=== PATIENT | male | born 1985 | race Caucasian/White ===

== ENCOUNTER → 2022-11-27 09:54 | Outpatient (BNVA) | payer OTHER, SELFPAY | PROVIDERS: PCP Nurse Practitioner Family; Referring Provider Nurse Practitioner Family; Visit Provider Surgery ==

== ENCOUNTER 2022-12-18 06:40 | Outpatient (REF) | payer OTHER, SELFPAY ==
[2022-12-18 11:33] LABS: MANUAL DIFF FLAG NO
[2022-12-18 11:52] LABS: Basophils Percent Auto 0.4 % (0-2); Eosinophils Absolute Auto 0.2 X10*3/uL (0.0-0.4); Eosinophils Percent Auto 2.1 % (0-4); Imm Gran Abs Auto 0.05 X10*3/uL (0.00-0.03); Imm Gran Pct Auto 0.5 % (0.0-0.4); Lymphocytes Absolute Auto 2.8 X10*3/uL (1.2-4.9); Lymphocytes Percent Auto 27.5 % (20-40); Mean Corpuscular HGB Conc 33.3 g/dl (31.0-36.0); Mean Corpuscular Hemoglobin 29.6 pg (27.0-33.0); Mean Corpuscular Volume 88.8 fL (80.0-98.0); Mean Platelet Volume 10.9 fL (9.4-12.4); Monocytes Absolute Auto 0.8 X10*3/uL (0.1-1.2); Monocytes Percent Auto 7.4 % (2-11); Neutrophils Absolute Auto 6.4 x10*3/uL (2.0-8.3); Neutrophils Percent Auto 62.1 % (45-73); Platelet Count 266 X10*3/uL (160-400); Red Blood Count 5.07 X10*6/uL (4.60-5.80); Red Cell Distribution Width 11.8 % (11.0-16.0); White Blood Count 10.3 X10*3/uL (4.8-10.8)
[2022-12-18 12:00] LABS: Appearance Urine Clear; Color Urine Yellow; Glucose Urine UA Negative (Negative); Leukocyte Esterase Urine Negative (Negative); Nitrite Urine Negative (Negative); Urine Blood Negative (Negative); Urine Ketones Negative (Negative); Urine Protein Negative (Neg-Trace)
[2022-12-18 12:54] LABS: Alanine Aminotransferase 26 U/L (0-40); Albumin Level 4.3 g/dL (3.5-5.0); Alkaline Phosphatase 42 U/L (39-117); Anion Gap 10 (12-20); Aspartate Amino Transferase 13 U/L (5-37); Bilirubin Total 1.8 mg/dL (0.0-1.0); Blood Urea Nitrogen 17 mg/dL (9-16); Carbon Dioxide 25 mmol/L (22-29); Chloride 110 mmol/L (96-108); Cholesterol 165 mg/dL; Estimated Glomerular Filt Rate > 60; Glucose Fasting 93 mg/dL (60-99); HDL Cholesterol 44 mg/dL; LDL Cholesterol Calculated 109 mg/dl; Potassium 4.4 mmol/L (3.3-5.1); Sodium 141 mmol/L (135-145); TSH reflex Free T4 1.25 uIU/mL (0.32-4.0); Total Protein 6.6 g/dL (6.5-8.0); Triglycerides 64 mg/dL
== END 2022-12-18 06:41 | disposition home or self-care (01) ==
LOC: HO.HMGCLDS 06:40
PROVIDERS: PCP Nurse Practitioner Family; Visit Provider Nurse Practitioner Family
DX: Z00.00 Encounter for general adult medical examination without abnormal findings (principal); L72.3 Sebaceous cyst
CPT/HCPCS: 11402; 36415; 80053; 80061; 81003; 84443; 85025

== ENCOUNTER 2022-12-18 14:30 | Outpatient (REF) | payer OTHER, SELFPAY | END 2022-12-18 14:31 | disposition home or self-care (01) | LOC: HO.LNP 14:30 | PROVIDERS: Visit Provider Surgery | DX: L72.3 Sebaceous cyst (principal) | CPT/HCPCS: 88304 ==

== ENCOUNTER → 2022-12-29 08:28 | Outpatient (BNVA) | payer OTHER, SELFPAY | PROVIDERS: Visit Provider Surgery ==

== ENCOUNTER 2023-01-04 07:55 | Outpatient (REF) | payer OTHER, SELFPAY ==
--- NOTE | ~2023-01-04 | US_ITS ---
EXAMINATION: US ABDOMEN COMPLETE CLINICAL INFORMATION: Unspecified jaundice. COMPARISON: CT abdomen and pelvis 11/22/2019. TECHNIQUE: Real-time imaging of the abdominal viscera. FINDINGS: PANCREAS: Normal. ABDOMINAL AORTA: The proximal, mid, and distal segments are normal in caliber. INFERIOR VENA CAVA: Visualized portions are normal. LIVER: The liver is normal in size. The liver contour is normal. Liver echotexture is slightly increased. No focal hepatic lesion. There is no intrahepatic biliary duct dilatation seen. GALLBLADDER: Normal. The gallbladder is physiologically distended without evidence of stones, sludge, polyps, wall thickening or pericholecystic fluid. COMMON BILE DUCT: Normal in caliber measuring 0.2 cm in diameter. RIGHT KIDNEY: Normal. No hydronephrosis. No renal calculi or focal parenchymal lesions. The kidney measures 10.1 cm in maximum dimension. LEFT KIDNEY: Normal. No hydronephrosis. No renal calculi or focal parenchymal lesions. The kidney measures 11.1 cm in maximum dimension. SPLEEN: Normal. The spleen measures 10.4 cm in maximum dimension. FREE FLUID: None. US/US abdomen complete IMPRESSION: Slightly echogenic liver probably representing fatty infiltration. Otherwise unremarkable exam.
== END 2023-01-04 07:56 | disposition home or self-care (01) ==
LOC: HO.US 07:55
PROVIDERS: PCP Nurse Practitioner Family; Visit Provider Nurse Practitioner Family
DX: R17 Unspecified jaundice (principal)
CPT/HCPCS: 76700

== ENCOUNTER 2023-01-15 06:57 | Outpatient (REF) | payer OTHER, SELFPAY ==
[2023-01-15 11:42] LABS: Immature Retic Fraction 7.9 % (2.3-13.4); Retic HGB Equivalent 35.7 pg (30.0-35.0); Reticulocyte Percent 1.2 % (0.5-1.8); Reticulocytes Absolute 0.062 X10*6/uL (0.026-0.095)
[2023-01-15 12:07] LABS: Bilirubin Direct 0.3 mg/dL (0.0-0.5); Bilirubin Total 1.4 mg/dL (0.0-1.0); Lactate Dehydrogenase 306 U/L (118-273)
[2023-01-18 21:09] LABS: Transglutaminase Ab IgG <1.0 U/mL; Transglutaminase IgA <1.0 U/mL
[2023-01-21 21:07] LABS: Haptoglobin 132 mg/dL (43-212)
== END 2023-01-15 06:58 | disposition home or self-care (01) ==
LOC: HO.HMGCLDS 06:57
PROVIDERS: PCP Nurse Practitioner Family; Visit Provider Nurse Practitioner Family
DX: R17 Unspecified jaundice (principal)
CPT/HCPCS: 36415; 82247; 82248; 83010; 83615; 85045; 86364

== ENCOUNTER 2023-01-25 14:54 | Outpatient (AMB) | payer OTHER, SELFPAY ==
[2023-01-25 15:07] VITALS: BP 116/70; PULSE 71; O2SAT 97; BMI 26.7
--- NOTE | 2023-01-25 15:07 | MHC.PC.OV ---
Vital Signs 01/25/23 15:07 Height 5 ft 8 in Weight 175 lb 8 oz BMI 26.7 BP 116/70 Blood Pressure Location Lt brachial Position Sitting Pulse 71 Pulse Source Pulse Oximeter Pulse Oximetry (%) 97 Oxygen Delivery Method Room Air Intake Visit Reasons: 3m follow up Allergies SEASONAL ALLERGIES Allergy (Unknown, Uncoded 01/25/23 15:09) unknown Medication List - Last Reconciled 01/25/23 by MARCO Velasquez sertraline 50 mg PO DAILY 30 days Tobacco use date assessed: 01/25/23 Dental Screening Dental Screen Date: 01/25/23 Did you have a dental visit in the last 12 months?: Yes Did you have a dental problem in the last 6 months where you did not have access to dental care?: No Was dental information given to patient?: Patient has dentist HPI 3m follow up HPI Details Pt's last bilirubin was elevated, though it is trending down. Liver function was normal. Will repeat labs in 2 months. Denies fever, chills, abdominal pain, and N/V/D. Pt reports increase anxiety with OCD component. Will increase sertraline from 25mg to 50mg. Denies any SI and HI. [facility] Medical History (Updated 01/06/23 @ 17:48 by MARCO Velasquez) Fatty liver Surgical History H/O removal of cyst (09/05/19) History of excision of mass (12/18/22) History of surgery (01/11/20) Family History Father Substance use disorder Maternal Grandfather Substance use disorder Maternal Grandmother Substance use disorder Paternal Grandfather Substance use disorder Paternal Grandmother Substance use disorder Social History Housing: House Patient Tobacco Use Status: Former Tobacco user e-Cigarette/Vaping Use: Currently Using service: No Current occupational status: employed Current occupation: [employer] Current occupational exposures/hazards: No Cognitive needs: No Hearing needs: No Vision needs: No Questionnaire Thrive Questionnaire Date Thrive assessed: 10/27/22 SOBIA-7 AMB Questionnaire SOBIA-7 Date SOBIA - 7 assessed: 10/27/22 Source: Developed by Drs. Nikita Gauthier, Lisa Miller, Santiago Dominique and colleagues, with an educational esperanza from [employer]. Review of Systems Const Reports as per HPI Physical exam (Primary Care) Vital Signs: Last Vital Signs Pulse 71 01/25/23 15:07 BP 116/70 01/25/23 15:07 Pulse Ox 97 01/25/23 15:07 Oxygen Delivery Method Room Air 01/25/23 15:07 BMI result Body Mass Index 26.7 Tobacco/Smoking Status: Tobacco use Status Tobacco use date assessed 01/25/23 01/25/23 15:11 Patient Tobacco Use Status Former Tobacco user 01/25/23 15:11 e-Cigarette/Vaping Use Currently Using 01/25/23 15:11 Thrive Assessment: Date of Thrive Assessment Date Thrive assessed 10/27/22 01/25/23 15:11 Const General: cooperative Orientation/consciousness: patient oriented x3 Resp Effort & Inspection: normal respiratory effort Auscultation: clear to auscultation bilaterally Cardio Rate: regular rate Rhythm: regular rhythm Heart sounds: S1 normal heart sound present and S2 normal heart sound present Neuro General: patient oriented x3 Psych Appearance: grossly normal Mental Status: mental status grossly normal Speech and movement: Normal speech and movement present Affect: normal affect Attitude: cooperative Thought process: Normal thought process present Thought content: Normal thought content present Insight: Good insight present (Psych) Judgement: Good judgement present (Psych) Assessment and Plan Assessment & Plan (1) Elevated bilirubin: Code(s): R17 - Unspecified jaundice (2) Anxiety: Code(s): F41.9 - Anxiety disorder, unspecified Plan The patient agreed to the use of a bacteriologist medical for this encounter. Scribed for ZOHREH Wilcox by Elzbieta Fontaine bacteriologist medical, on 01/25/2023 at 15:10 EST. Orders: Orders Bilirubin Direct Today R17 - Unspecified jaundice Bilirubin Total Today R17 - Unspecified jaundice Comprehensive Met. Panel Today R17 - Unspecified jaundice Lactate Dehydrogenase Today R17 - Unspecified jaundice Complete Blood Count Auto Diff Today R17 - Unspecified jaundice Reticulocyte Count Today R17 - Unspecified jaundice Medications: Changed From sertraline 25 mg PO DAILY 30 days 30 tabs 3RF To sertraline 50 mg PO DAILY 30 days 30 tabs 3RF From sertraline 50 mg PO DAILY 30 days 30 tabs 3RF To sertraline 50 mg PO DAILY 90 tabs 3RF 90 days Coding Level of Care Code Est Pt Level 3 (72436) Diagnoses Elevated bilirubin R17 Anxiety F41.9
== END 2023-01-25 15:26 | disposition home or self-care (01) ==
PROVIDERS: Visit Provider Nurse Practitioner Family
DX: R17 Unspecified jaundice (principal); F41.9 Anxiety disorder, unspecified
CPT/HCPCS: 99213

== ENCOUNTER 2023-04-21 07:27 | Outpatient (REF) | payer OTHER, SELFPAY ==
[2023-04-21 11:21] LABS: MANUAL DIFF FLAG NO
[2023-04-21 11:33] LABS: Basophils Percent Auto 0.5 % (0-2); Eosinophils Absolute Auto 0.2 X10*3/uL (0.0-0.4); Eosinophils Percent Auto 1.9 % (0-4); Hematocrit 45.6 % (42.0-52.0); Hemoglobin 15.1 g/dl (14.0-18.0); Imm Gran Abs Auto 0.04 X10*3/uL (0.00-0.03); Imm Gran Pct Auto 0.5 % (0.0-0.4); Immature Retic Fraction 5.8 % (2.3-13.4); Lymphocytes Absolute Auto 2.4 X10*3/uL (1.2-4.9); Lymphocytes Percent Auto 27.7 % (20-40); Mean Corpuscular HGB Conc 33.1 g/dl (31.0-36.0); Mean Corpuscular Hemoglobin 29.7 pg (27.0-33.0); Mean Corpuscular Volume 89.8 fL (80.0-98.0); Mean Platelet Volume 10.9 fL (9.4-12.4); Monocytes Absolute Auto 0.6 X10*3/uL (0.1-1.2); Monocytes Percent Auto 6.4 % (2-11); Neutrophils Absolute Auto 5.4 x10*3/uL (2.0-8.3); Platelet Count 249 X10*3/uL (160-400); Red Blood Count 5.08 X10*6/uL (4.60-5.80); Red Cell Distribution Width 11.8 % (11.0-16.0); Retic HGB Equivalent 34.9 pg (30.0-35.0); Reticulocyte Percent 1.2 % (0.5-1.8); Reticulocytes Absolute 0.061 X10*6/uL (0.026-0.095); White Blood Count 8.6 X10*3/uL (4.8-10.8)
[2023-04-21 11:56] LABS: Alanine Aminotransferase 67 U/L (0-40); Albumin Level 4.4 g/dL (3.5-5.0); Alkaline Phosphatase 44 U/L (39-117); Anion Gap 11 (12-20); Aspartate Amino Transferase 36 U/L (5-37); Bilirubin Direct 0.3 mg/dL (0.0-0.5); Bilirubin Total 0.8 mg/dL (0.0-1.0); Blood Urea Nitrogen 22 mg/dL (9-16); Calcium 9.1 mg/dL (8.4-10.2); Carbon Dioxide 26 mmol/L (22-29); Chloride 107 mmol/L (96-108); Estimated Glomerular Filt Rate > 60; Glucose Random 98 mg/dL (60-115); Potassium 4.1 mmol/L (3.3-5.1); Sodium 140 mmol/L (135-145); Total Protein 6.9 g/dL (6.5-8.0)
[2023-04-21 12:39] LABS: Lactate Dehydrogenase 192 U/L (118-273)
== END 2023-04-21 07:28 | disposition home or self-care (01) ==
LOC: HO.CHCLDS 07:27
PROVIDERS: Visit Provider Nurse Practitioner Family
DX: R17 Unspecified jaundice (principal)
CPT/HCPCS: 36415; 80053; 82248; 83615; 85025; 85045

== ENCOUNTER 2023-04-29 07:53 | Outpatient (AMB) | payer OTHER, SELFPAY ==
[2023-04-29 07:58] VITALS: BP 110/68; PULSE 62; O2SAT 97; BMI 26.5
--- NOTE | 2023-04-29 07:58 | MHC.PC.OV ---
Vital Signs 04/29/23 07:58 Height 5 ft 8 in Weight 174 lb 8 oz BMI 26.5 BP 110/68 Blood Pressure Location Lt brachial Position Sitting Pulse 62 Pulse Source Pulse Oximeter Pulse Oximetry (%) 97 Oxygen Delivery Method Room Air Intake Visit Reasons: 3 Month follow up Allergies SEASONAL ALLERGIES Allergy (Unknown, Uncoded 04/29/23 08:00) unknown Medication List - Last Reconciled 04/29/23 by MARCO Velasquez sertraline 50 mg PO DAILY 90 days Tobacco use date assessed: 04/29/23 Dental Screening Dental Screen Date: 04/29/23 Did you have a dental visit in the last 12 months?: Yes Did you have a dental problem in the last 6 months where you did not have access to dental care?: No Was dental information given to patient?: Patient has dentist HPI 3 Month follow up HPI Details Anxiety. Pt is currently taking sertraline 50mg. Pt reports doing well on this med. Denies any SI and HI. Pt has a hx of fatty liver confirmed on US. Pt's liver enzymes have increased, will repeat. Pt would like to quit vaping. Will send nicotine patches. knows to take them off at night, before bed. [facility], [facility] Medical History (Updated 04/29/23 @ 08:11 by MARCO Velasquez) Fatty liver Surgical History History of excision of mass (12/18/22) History of surgery (01/11/20) H/O removal of cyst (09/05/19) Family History Father Substance use disorder Maternal Grandfather Substance use disorder Maternal Grandmother Substance use disorder Paternal Grandfather Substance use disorder Paternal Grandmother Substance use disorder Social History Housing: House Patient Tobacco Use Status: Former Tobacco user e-Cigarette/Vaping Use: Currently Using service: No Current occupational status: employed Current occupation: [employer] Current occupational exposures/hazards: No Cognitive needs: No Hearing needs: No Vision needs: No Questionnaire Thrive Questionnaire Date Thrive assessed: 10/27/22 SOBIA-7 AMB Questionnaire SOBIA-7 Date SOBIA - 7 assessed: 10/27/22 Source: Developed by Drs. Nikita Gauthier, Lisa Miller, Santiago Dominique and colleagues, with an educational esperanza from [employer]. Review of Systems Const Reports as per HPI Physical exam (Primary Care) Vital Signs: Last Vital Signs Pulse 62 04/29/23 07:58 BP 110/68 04/29/23 07:58 Pulse Ox 97 04/29/23 07:58 Oxygen Delivery Method Room Air 04/29/23 07:58 BMI result Body Mass Index 26.5 Tobacco/Smoking Status: Tobacco use Status Tobacco use date assessed 04/29/23 04/29/23 08:02 Patient Tobacco Use Status Former Tobacco user 04/29/23 08:02 e-Cigarette/Vaping Use Currently Using 04/29/23 08:02 Thrive Assessment: Date of Thrive Assessment Date Thrive assessed 10/27/22 04/29/23 08:02 Const General: cooperative Orientation/consciousness: patient oriented x3 Resp Effort & Inspection: normal respiratory effort Auscultation: clear to auscultation bilaterally Cardio Rate: regular rate Rhythm: regular rhythm Heart sounds: S1 normal heart sound present and S2 normal heart sound present GI Other: no abdominal pain with palpation Neuro General: patient oriented x3 Psych Appearance: grossly normal Mental Status: mental status grossly normal Speech and movement: Normal speech and movement present Affect: normal affect Attitude: cooperative Thought process: Normal thought process present Thought content: Normal thought content present Insight: Good insight present (Psych) Judgement: Good judgement present (Psych) Assessment and Plan Assessment & Plan (1) Fatty liver: Code(s): K76.0 - Fatty (change of) liver, not elsewhere classified Plan: Labs ordered (2) Elevated liver enzymes: Code(s): R74.8 - Abnormal levels of other serum enzymes Plan: Labs ordered (3) Anxiety: Code(s): F41.9 - Anxiety disorder, unspecified Plan The patient agreed to the use of a medical radiation dosimetrist for this encounter. Scribed for MARCO Wilcox by Elzbieta Fontaine medical radiation dosimetrist, on 04/29/2023 at 08:05 EST Orders: Orders Comprehensive Met. Panel Today K76.0 - Fatty (change of) liver, not elsewhere classified, R74.8 - Abnormal levels of other serum enzymes Medications: New nicotine 1 patch transdermal DAILY 28 ea 0RF Coding Level of Care Code Est Pt Level 3 (95521) Diagnoses Fatty liver K76.0 Elevated liver enzymes R74.8 Anxiety F41.9
== END 2023-04-29 09:43 | disposition home or self-care (01) ==
PROVIDERS: PCP Nurse Practitioner Family; Visit Provider Nurse Practitioner Family
DX: K76.0 Fatty (change of) liver, not elsewhere classified (principal); R74.8 Abnormal levels of other serum enzymes; F41.9 Anxiety disorder, unspecified
CPT/HCPCS: 99213

== ENCOUNTER 2023-10-05 07:57 | Outpatient (AMB) | payer OTHER, SELFPAY ==
--- NOTE | 2023-10-05 08:04 | MHC.PC.OV ---
Vital Signs 10/05/23 08:06 Height 5 ft 8 in Weight 189 lb BMI 28.7 BP 122/76 Blood Pressure Location Lt brachial Position Sitting Pulse 66 Pulse Source Pulse Oximeter Pulse Oximetry (%) 98 Oxygen Delivery Method Room Air Intake Visit Reasons: Annual PE Intake Note: pt is here for annual exam Construction Engineering Manager Required: No Accompanied by: Self / Same As Patient Allergies SEASONAL ALLERGIES Allergy (Unknown, Uncoded 10/05/23 08:32) unknown Medication List - Last Reconciled 10/05/23 by MARCO Velasquez sertraline 100 mg PO DAILY 90 days Tobacco use date assessed: 10/05/23 Dental Screening Dental Screen Date: 10/05/23 Did you have a dental visit in the last 12 months?: Yes Did you have a dental problem in the last 6 months where you did not have access to dental care?: No Was dental information given to patient?: Patient has dentist HPI Annual PE HPI Details Pt is here for a PE. Will order labs. Pt is currently taking sertraline 50mg. He reports that this helps minimally and he would like this increased. Will increase to 100mg. Denies any SI and HI. [facility] Medical History Fatty liver Surgical History History of excision of mass (12/18/22) History of surgery (01/11/20) H/O removal of cyst (09/05/19) Family History Father Substance use disorder Maternal Grandfather Substance use disorder Maternal Grandmother Substance use disorder Paternal Grandfather Substance use disorder Paternal Grandmother Substance use disorder Social History Housing: House Patient Tobacco Use Status: Former Tobacco user e-Cigarette/Vaping Use: Currently Using service: No Current occupational status: employed Current occupation: [employer] Current occupational exposures/hazards: No Cognitive needs: No Hearing needs: No Vision needs: No Questionnaire PHQ-9 Over the last 2 weeks, how often have you been bothered by any of the following problems? 1. Little interest or pleasure in doing things: not at all 2. Feeling down, depressed, or hopeless: not at all 3. Trouble falling or staying asleep, or sleeping too much: not at all 4. Feeling tired or having little energy: not at all 5. Poor appetite or overeating: several days 6. Feeling bad about yourself - or that you are a failure or have let yourself or your family down: not at all 7. Trouble concentrating on things, such as reading the newspaper or watching television: nearly every day 8. Moving or speaking so slowly that other people could have noticed. Or the opposite - being so fidgety or restless that you have been moving around a lot more than usual: not at all 9. Thoughts that you would be better off or of hurting yourself in some way: not at all Total score: 4 Depression Screening Interpretation: Positive Depression Screening Done: Yes 73087 - PHQ-9 Billing: Yes Source: Developed by Drs. Nikita Gauthier, Lisa Miller, Santiago Dominique and colleagues, with an educational esperanza from [employer]. Thrive Questionnaire Date Thrive assessed: 10/05/23 I am a: Patient What is your living situation today?: I have a steady place to live Within the past 12 months, did the food you bought not last and you didn't have the money to get more?: Never true Within the past 12 months, did you worry whether your food would run out before you got money to buy more?: Never true Do you have trouble paying for medicines?: No Do you have trouble getting transportation to medical appointments?: No Do you have trouble paying your heating and electricity bill?: No Do you have trouble taking care of your child, family member or friend?: No Do you have trouble with day-to-day activities such as bathing, preparing meals, shopping, managing finances, etc.?: No Are you currently unemployed and looking for a job?: No Are you interested in more education?: No Please select the resources that you would like help with: None Currently or been in a relationship where the following occur: no concerns reported THRIVE Score: 0 AUDIT C Alcohol Use Questionnaire (AUDIT-C) 1. How often do you have a drink containing alcohol?: Never Total Score: 0 Score Reviewed/Action Taken: Yes SOBIA-7 AMB Questionnaire SOBIA-7 Date SOBIA - 7 assessed: 10/05/23 Feeling nervous, anxious, or on edge: 3 = Nearly every day Not being able to stop or control worryin = More than half the days Worrying too much about different things: 2 = More than half the days Trouble relaxin = More than half the days Being so restless that it is hard to sit still: 3 = Nearly every day Becoming easily annoyed or irritable: 3 = Nearly every day Feeling afraid as if something awful might happen: 0 = Not at all Total SOBIA-7 score (0-4 normal; 5-9 mild; 10-14 moderate; 15-21 severe): 15 Source: Developed by Drs. Nikita Gauthier, Lisa Miller, Santiago Dominique and colleagues, with an educational esperanza from [employer]. SOBIA-7 Assessment Billing SOBIA-7 Assessment Tool: SOBIA-7 Assessment 45191 Review of Systems Const Denies chills and Denies fever(s) Eyes Denies blurry vision ENT Denies vertigo, Denies dizziness and Denies sore throat Card Denies chest pain at rest, Denies chest pain with activity, Denies diaphoresis, Denies dyspnea and Denies dyspnea on exertion Resp Denies cough, Denies dyspnea, Denies dyspnea on exertion and Denies wheezing GI Denies abdominal pain, Denies melena, Denies hematochezia, Denies constipation, Denies diarrhea and Denies loose stools Denies hematuria Musc Denies numbness and Denies tingling Skin/Breast Denies lesions Neuro Denies vertigo, Denies dizziness, Denies numbness and Denies tingling Psych Denies anxiety, Denies depression, Denies homicidal ideation, Denies suicidal ideation and Denies other (substance abuse) Aller/Immun Denies wheezing Physical exam (Primary Care) Vital Signs: Last Vital Signs Pulse 66 10/05/23 08:06 BP 122/76 10/05/23 08:06 Pulse Ox 98 10/05/23 08:06 Oxygen Delivery Method Room Air 10/05/23 08:06 BMI result Body Mass Index 28.7 Tobacco/Smoking Status: Tobacco use Status Tobacco use date assessed 10/05/23 10/05/23 08:11 Patient Tobacco Use Status Former Tobacco user 10/05/23 08:05 e-Cigarette/Vaping Use Currently Using 10/05/23 08:05 PHQ-9: PHQ-9 Score PHQ-9: Total score 4 10/05/23 08:17 Depression Screening Interpretation: Positive Thrive Assessment: Date of Thrive Assessment Date Thrive assessed 10/05/23 10/05/23 08:11 Currently or been in a relationship where the following occur: no concerns reported Const General: cooperative Nutritional Appearance: well nourished Orientation/consciousness: patient oriented x3 HENMT Head: Yes normal to inspection, Yes normocephalic and Yes atraumatic Ears: TM's normal bilaterally Eyes General: appearance normal, both eyes and all related structures Alignment and Position: alignment normal and position normal Neck Neck: Yes normal visual inspection and Yes no lymphadenopathy Thyroid: Thyroid normal Resp Effort & Inspection: normal respiratory effort Auscultation: clear to auscultation bilaterally Cardio Rate: regular rate Rhythm: regular rhythm Heart sounds: S1 normal heart sound present, S2 normal heart sound present and no murmurs GI Palpation (GI): Soft to palpation and nontender Auscultation: normal bowel sounds Male General Exam: Yes normal external exam Penis: normal penis Scrotum: scrotum normal, testes descended bilaterally and no inguinal hernias Testes: no testicular mass Skin Other: papular moles to bilat [place] Rashes: no rashes Neuro General: patient oriented x3, moves all extremities, no focal motor deficits and deep tendon reflexes 2+ bilaterally Romberg Test: Negative Psych Appearance: grossly normal Mental Status: mental status grossly normal Speech and movement: Normal speech and movement present Affect: normal affect Attitude: cooperative Thought process: Normal thought process present Thought content: Normal thought content present Insight: Good insight present (Psych) Judgement: Good judgement present (Psych) Assessment and Plan Assessment & Plan (1) Physical exam: Code(s): Z00.00 - Encounter for general adult medical examination without abnormal findings Plan: Labs ordered (2) Anxiety: Code(s): F41.9 - Anxiety disorder, unspecified Plan: increasing sertraline from 50mg to 100mg. Plan The patient agreed to the use of a medical receptionist medical assistant for this encounter. Scribed for MARCO Wilcox by Elzbieta Fontaine medical receptionist medical assistant, on 10/05/2023 at 08:20 EST. Orders: Orders TSH reflex Free T4 Today Z00.00 - Encounter for general adult medical examination without abnormal findings UA CC w/rflx Micro + Cult Today Z00.00 - Encounter for general adult medical examination without abnormal findings Complete Blood Count Auto Diff Today Z00.00 - Encounter for general adult medical examination without abnormal findings Comprehensive [place]. Panel Fast Today Z00.00 - Encounter for general adult medical examination without abnormal findings Lipid Panel Today Z00.00 - Encounter for general adult medical examination without abnormal findings Medications: Changed From sertraline 50 mg PO DAILY 90 tabs 3RF 90 days To sertraline 100 mg PO DAILY 90 tabs 2RF 90 days Coding Level of Care Code Est Pt Prev Care 18-39y(66766) Diagnoses Physical exam Z00.00 Anxiety F41.9 Additional Codes SOBIA-7 Assessment Billing - SOBIA-7 Assessment Tool: SOBIA-7 Assessment 10720 ([id number])
[2023-10-05 08:06] VITALS: BP 122/76; PULSE 66; O2SAT 98; BMI 28.7
== END 2023-10-05 08:29 | disposition home or self-care (01) ==
PROVIDERS: PCP Nurse Practitioner Family; Visit Provider Nurse Practitioner Family
DX: Z00.00 Encounter for general adult medical examination without abnormal findings (principal); F41.9 Anxiety disorder, unspecified
CPT/HCPCS: 96127; 99395

== ENCOUNTER 2024-01-28 06:09 | Outpatient (REF) | payer OTHER, SELFPAY ==
[2024-01-28 10:21] LABS: MANUAL DIFF FLAG NO
[2024-01-28 10:36] LABS: Basophils Absolute Auto 0.1 X10*3/uL (0.0-0.2); Basophils Percent Auto 0.8 % (0-2); Eosinophils Absolute Auto 0.2 X10*3/uL (0.0-0.4); Eosinophils Percent Auto 2.8 % (0-4); Hematocrit 46.2 % (42.0-52.0); Hemoglobin 15.3 g/dl (14.0-18.0); Imm Gran Abs Auto 0.04 X10*3/uL (0.00-0.03); Imm Gran Pct Auto 0.5 % (0.0-0.4); Lymphocytes Absolute Auto 2.6 X10*3/uL (1.2-4.9); Lymphocytes Percent Auto 34.8 % (20-40); Mean Corpuscular HGB Conc 33.1 g/dl (31.0-36.0); Mean Corpuscular Hemoglobin 29.5 pg (27.0-33.0); Mean Platelet Volume 10.7 fL (9.4-12.4); Monocytes Absolute Auto 0.6 X10*3/uL (0.1-1.2); Neutrophils Percent Auto 53.1 % (45-73); Platelet Count 262 X10*3/uL (160-400); Red Blood Count 5.19 X10*6/uL (4.60-5.80); Red Cell Distribution Width 11.8 % (11.0-16.0); White Blood Count 7.6 X10*3/uL (4.8-10.8)
[2024-01-28 10:57] LABS: Alanine Aminotransferase 21 U/L (0-40); Albumin Level 4.4 g/dL (3.5-5.0); Alkaline Phosphatase 47 U/L (39-117); Anion Gap 11 (12-20); Appearance Urine Turbid; Aspartate Amino Transferase 15 U/L (5-37); Bilirubin Total 0.6 mg/dL (0.0-1.0); Blood Urea Nitrogen 17 mg/dL (9-16); Calcium 9.6 mg/dL (8.4-10.2); Carbon Dioxide 25 mmol/L (22-29); Chloride 109 mmol/L (96-108); Cholesterol 166 mg/dL (<200); Color Urine Yellow; Estimated Glomerular Filt Rate > 60; Glucose Fasting 100 mg/dL (60-99); Glucose Urine UA Negative (Negative); HDL Cholesterol 47 mg/dL (>40); LDL Cholesterol Calculated 99 mg/dL (<100); Leukocyte Esterase Urine Negative (Negative); Nitrite Urine Negative (Negative); PH 5.5 (5.0-9.0); Sodium 141 mmol/L (135-145); Total Protein 6.8 g/dL (6.5-8.0); Triglycerides 102 mg/dL (<150); Urine Blood Negative (Negative); Urine Ketones Negative (Negative); Urine Protein Negative (Neg-Trace)
== END 2024-01-28 06:10 | disposition home or self-care (01) ==
LOC: HO.HMGCLDS 06:09
PROVIDERS: PCP Nurse Practitioner Family; Visit Provider Nurse Practitioner Family
DX: Z00.00 Encounter for general adult medical examination without abnormal findings (principal); Z13.6 Encounter for screening for cardiovascular disorders
CPT/HCPCS: 36415; 80053; 80061; 81003; 84443; 85025

== ENCOUNTER 2024-04-04 08:22 | Outpatient (AMB) | payer OTHER, SELFPAY ==
--- NOTE | 2024-04-04 08:28 | MHC.PC.OV ---
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 He does not believe this is very effective. Pt reports ongoing mind racing. ? OCD/ADD component. Will refer to psychiatry for further evaluation and treatment. Denies any SI and HI. [facility] Medical History Fatty liver Surgical History History of excision of mass (12/18/22) History of surgery (01/11/20) H/O removal of cyst (09/05/19) Family History Father Substance use disorder Maternal Grandfather Substance use disorder Maternal Grandmother Substance use disorder Paternal Grandfather Substance use disorder Paternal Grandmother Substance use disorder Social History Housing: House Patient Tobacco Use Status: Former Tobacco user e-Cigarette/Vaping Use: Currently Using service: No Current occupational status: employed Current occupation: [employer] Current occupational exposures/hazards: No Cognitive needs: No Hearing needs: No Vision needs: No Questionnaire PHQ-9 Over the last 2 weeks, how often have you been bothered by any of the following problems? 1. Little interest or pleasure in doing things: not at all 2. Feeling down, depressed, or hopeless: not at all 3. Trouble falling or staying asleep, or sleeping too much: not at all 4. Feeling tired or having little energy: not at all 5. Poor appetite or overeating: not at all 6. Feeling bad about yourself - or that you are a failure or have let yourself or your family down: not at all 7. Trouble concentrating on things, such as reading the newspaper or watching television: nearly every day 8. Moving or speaking so slowly that other people could have noticed. Or the opposite - being so fidgety or restless that you have been moving around a lot more than usual: nearly every day 9. Thoughts that you would be better off or of hurting yourself in some way: not at all Total score: 6 Depression Screening Interpretation: Negative Depression Screening Done: Yes 14277 - PHQ-9 Billing: Yes Source: Developed by Drs. Nikita Gauthier, Lisa Miller, Santiago Dominique and colleagues, with an educational esperanza from [employer]. Thrive Questionnaire Date Thrive assessed: 04/04/24 I am a: Patient What is your living situation today?: I have a steady place to live Within the past 12 months, did the food you bought not last and you didn't have the money to get more?: Never true Within the past 12 months, did you worry whether your food would run out before you got money to buy more?: Never true Do you have trouble paying for medicines?: No Do you have trouble getting transportation to medical appointments?: No Do you have trouble paying your heating and electricity bill?: No Do you have trouble taking care of your child, family member or friend?: No Do you have trouble with day-to-day activities such as bathing, preparing meals, shopping, managing finances, etc.?: No Are you currently unemployed and looking for a job?: No Are you interested in more education?: No Please select the resources that you would like help with: None Currently or been in a relationship where the following occur: No concerns reported THRIVE Score: 0 AUDIT C Alcohol Use Questionnaire (AUDIT-C) 1. How often do you have a drink containing alcohol?: Never 3. How often do you have six or more drinks on one occasion?: Never Total Score: 0 Score Reviewed/Action Taken: Yes SOBIA-7 AMB Questionnaire SOBIA-7 Date SOBIA - 7 assessed: 04/04/24 Feeling nervous, anxious, or on edge: 3 = Nearly every day Not being able to stop or control worryin = Nearly every day Worrying too much about different things: 3 = Nearly every day Trouble relaxin = Nearly every day Being so restless that it is hard to sit still: 3 = Nearly every day Becoming easily annoyed or irritable: 3 = Nearly every day Feeling afraid as if something awful might happen: 0 = Not at all Total SOBIA-7 score (0-4 normal; 5-9 mild; 10-14 moderate; 15-21 severe): 18 Source: Developed by Drs. Nikita Gauthier, Lisa Miller, Santiago Dominique and colleagues, with an educational esperanza from [employer]. SOBIA-7 Assessment Billing SOBIA-7 Assessment Tool: SOBIA-7 Assessment 45550 Review of Systems Const Reports as per HPI Physical exam (Primary Care) Vital Signs: Last Vital Signs Pulse 68 04/04/24 08:29 BP 118/72 04/04/24 08:29 Pulse Ox 98 04/04/24 08:29 BMI result Body Mass Index 28.0 Tobacco/Smoking Status: Tobacco use Status Tobacco use date assessed 10/05/23 04/04/24 08:32 Patient Tobacco Use Status Former Tobacco user 04/04/24 08:32 e-Cigarette/Vaping Use Currently Using 04/04/24 08:32 PHQ-9: PHQ-9 Score PHQ-9: Total score 6 04/04/24 08:32 Depression Screening Interpretation: Negative Thrive Assessment: Date of Thrive Assessment Date Thrive assessed 04/04/24 04/04/24 08:32 Currently or been in a relationship where the following occur: No concerns reported Const General: cooperative Orientation/consciousness: patient oriented x3 Resp Effort & Inspection: normal respiratory effort Auscultation: clear to auscultation bilaterally Cardio Rate: regular rate Rhythm: regular rhythm Heart sounds: S1 normal heart sound present and S2 normal heart sound present Neuro General: patient oriented x3 Psych Appearance: grossly normal Mental Status: mental status grossly normal Speech and movement: Normal speech and movement present Affect: normal affect Attitude: cooperative Thought process: Normal thought process present Thought content: Normal thought content present Insight: Good insight present (Psych) Judgement: Good judgement present (Psych) Assessment and Plan Assessment & Plan (1) Anxiety: Code(s): F41.9 - Anxiety disorder, unspecified Plan: referring to outpt psych for their input Plan The patient agreed to the use of a medical technologist microbiology for this encounter. Scribed for MARCO Wilcox by Elzbieta Fontaine medical technologist microbiology, on 04/04/2024 at 08:45 EST. Orders: Referrals Psychiatry Outpatient Consultation Service F41.9 - Anxiety disorder, unspecified Medications: New nicotine 1 patch transdermal Q24H 28 ea 0RF Coding Level of Care Code Est Pt Level 3 (07178) Diagnoses Anxiety F41.9 Additional Codes SOBIA-7 Assessment Billing - SOBIA-7 Assessment Tool: SOBIA-7 Assessment 16984 ([id number])
[2024-04-04 08:29] VITALS: BP 118/72; PULSE 68; O2SAT 98; BMI 28.0
== END 2024-04-04 09:25 | disposition home or self-care (01) ==
PROVIDERS: PCP Nurse Practitioner Family; Visit Provider Nurse Practitioner Family
DX: F41.9 Anxiety disorder, unspecified (principal)

== ENCOUNTER → 2024-04-04 08:22 | Outpatient (BNVA) | payer OTHER, SELFPAY | PROVIDERS: PCP Nurse Practitioner Family; Visit Provider Nurse Practitioner Family | DX: F41.9 Anxiety disorder, unspecified (principal); Z79.899 Other long term (current) drug therapy | CPT/HCPCS: 96127 ==

== ENCOUNTER 2024-11-06 07:26 | Outpatient (AMB) | payer OTHER, SELFPAY ==
[2024-11-06 07:35] VITALS: BP 110/64; PULSE 81; RESP 16; TEMP 36.8; O2SAT 98; BMI 26.6
--- NOTE | 2024-11-06 07:35 | A.OFFPC_ITS ---
Vital Signs 11/06/24 07:35 Height 5 ft 8 in Weight 175 lb BMI 26.6 BP 110/64 Blood Pressure Location Lt brachial Position Sitting Respiration 16 Pulse 81 Pulse Source Pulse Oximeter Temp 98.2 F Temp Source Oral Pulse Oximetry (%) 98 Oxygen Delivery Method Room Air Intake Visit Reasons: Annual PE Intake Note: Pt is here today for his PE Allergies SEASONAL ALLERGIES Allergy (Unknown, Uncoded 11/06/24 07:54) unknown Medication List - Last Reconciled 11/06/24 by MARCO Velasquez sertraline 100 mg PO DAILY 90 days Tobacco use date assessed: 11/06/24 Dental Screening Dental Screen Date: 11/06/24 Did you have a dental visit in the last 12 months?: Yes Did you have a dental problem in the last 6 months where you did not have access to dental care?: No Was dental information given to patient?: Patient has dentist [facility] Medical History Fatty liver Surgical History History of excision of mass (12/18/22) History of surgery (01/11/20) H/O removal of cyst (09/05/19) Family History Father Substance use disorder Maternal Grandfather Substance use disorder Maternal Grandmother Substance use disorder Paternal Grandfather Substance use disorder Paternal Grandmother Substance use disorder Social History Housing: House Patient Tobacco Use Status: Former Tobacco user e-Cigarette/Vaping Use: Former Use service: No Current occupational status: employed Current occupation: [employer] Current occupational exposures/hazards: No Cognitive needs: No Hearing needs: No Vision needs: Yes Questionnaire PHQ-9 Over the last 2 weeks, how often have you been bothered by any of the following problems? 1. Little interest or pleasure in doing things: not at all 2. Feeling down, depressed, or hopeless: not at all 3. Trouble falling or staying asleep, or sleeping too much: not at all 4. Feeling tired or having little energy: not at all 5. Poor appetite or overeating: several days 6. Feeling bad about yourself - or that you are a failure or have let yourself or your family down: not at all 7. Trouble concentrating on things, such as reading the newspaper or watching television: not at all 8. Moving or speaking so slowly that other people could have noticed. Or the opposite - being so fidgety or restless that you have been moving around a lot more than usual: not at all 9. Thoughts that you would be better off or of hurting yourself in some way: not at all Total score: 1 Depression Screening Interpretation: Negative Depression Screening Done: Yes 41013 - PHQ-9 Billing: Yes Source: Developed by Drs. Nikita Gauthier, Lisa Miller, Santiago Dominique and colleagues, with an educational esperanza from [employer]. Thrive Questionnaire Date Thrive assessed: 11/03/24 I am a: Patient What is your living situation today?: I have a steady place to live Within the past 12 months, did the food you bought not last and you didn't have the money to get more?: Never true Within the past 12 months, did you worry whether your food would run out before you got money to buy more?: Never true Do you have trouble paying for medicines?: No Do you have trouble getting transportation to medical appointments?: No Do you have trouble paying your heating and electricity bill?: No Do you have trouble taking care of your child, family member or friend?: No Do you have trouble with day-to-day activities such as bathing, preparing meals, shopping, managing finances, etc.?: No Are you currently unemployed and looking for a job?: No Are you interested in more education?: No Please select the resources that you would like help with: None Currently or been in a relationship where the following occur: No concerns reported THRIVE Score: 0 AUDIT C Alcohol Use Questionnaire (AUDIT-C) 1. How often do you have a drink containing alcohol?: Never Total Score: 0 SOBIA-7 AMB Questionnaire SOBIA-7 Date SOBIA - 7 assessed: 11/06/24 Feeling nervous, anxious, or on edge: 3 = Nearly every day Not being able to stop or control worryin = Nearly every day Worrying too much about different things: 3 = Nearly every day Trouble relaxin = Nearly every day Being so restless that it is hard to sit still: 3 = Nearly every day Becoming easily annoyed or irritable: 3 = Nearly every day Feeling afraid as if something awful might happen: 0 = Not at all Total SOBIA-7 score (0-4 normal; 5-9 mild; 10-14 moderate; 15-21 severe): 18 Source: Developed by Drs. Nikita Gauthier, Lisa Miller, Santiago Dominique and colleagues, with an educational esperanza from [employer]. SOBIA-7 Assessment Billing SOBIA-7 Assessment Tool: SOBIA-7 Assessment 79083 (denies any SI or HI) Physical exam (Primary Care) Vital Signs: Last Vital Signs Temp 98.2 F 11/06/24 07:35 Pulse 81 11/06/24 07:35 Resp 16 11/06/24 07:35 BP 110/64 11/06/24 07:35 Pulse Ox 98 11/06/24 07:35 Oxygen Delivery Method Room Air 11/06/24 07:35 BMI result Body Mass Index 26.6 Tobacco/Smoking Status: Tobacco use Status Tobacco use date assessed 11/06/24 11/06/24 07:38 Patient Tobacco Use Status Former Tobacco user 11/06/24 07:38 e-Cigarette/Vaping Use Former Use 11/06/24 07:45 PHQ-9: PHQ-9 Score PHQ-9: Total score 1 11/06/24 07:38 Depression Screening Interpretation: Negative Thrive Assessment: Date of Thrive Assessment Date Thrive assessed 11/03/24 11/06/24 07:38 Currently or been in a relationship where the following occur: No concerns reported Coding Level of Care Code Est Pt Prev Care 18-39y(37252) Diagnoses Physical exam Z00.00 Additional Codes PHQ-9 - 02114 - PHQ-9 Billing: Yes ([id number]) SOBIA-7 Assessment Billing - SOBIA-7 Assessment Tool: SOBIA-7 Assessment 98963 ([id number]) Assessment & Plan Assessment & Plan (1) Physical exam: Code(s): Z00.00 - Encounter for general adult medical examination without abnormal findings Category: Medical Plan . Orders: Orders Complete Blood Count Auto Diff Today Z00.00 - Encounter for general adult medical examination without abnormal findings Comprehensive [place]. Panel Fast Today Z00.00 - Encounter for general adult medical examination without abnormal findings TSH reflex Free T4 Today Z00.00 - Encounter for general adult medical examination without abnormal findings Lipid Panel Today Z00.00 - Encounter for general adult medical examination without abnormal findings UA CC w/rflx Micro + Cult Today Z00.00 - Encounter for general adult medical examination without abnormal findings
== END 2024-11-06 08:02 | disposition home or self-care (01) ==
LOC: HO.HMCC 07:27
PROVIDERS: PCP Nurse Practitioner Family; Visit Provider Nurse Practitioner Family
DX: Z00.00 Encounter for general adult medical examination without abnormal findings (principal)

== ENCOUNTER → 2024-11-06 07:26 | Outpatient (BNVA) | payer OTHER, SELFPAY | PROVIDERS: PCP Nurse Practitioner Family; Visit Provider Nurse Practitioner Family | DX: Z00.00 Encounter for general adult medical examination without abnormal findings (principal) | CPT/HCPCS: 96127 ==